=== PATIENT | male | born 1975 | race Caucasian/White ===

== ENCOUNTER 2024-07-15 17:26 | Emergency (ER) | payer OTHER ==
--- NOTE | 2024-07-15 18:47 | RAD REPORT ---
EXAMINATION: ONE VIEW CHEST XR CLINICAL INDICATION: Chest pain;Palpitations TECHNIQUE: Frontal chest projection is submitted. Examination is limited by patient positioning and t echnique. COMPARISON: No prior exam. FINDINGS: The lungs are well inflated and clear. The heart is normal in size. No displaced fractures identified . IMPRESSION: No acute intrathoracic abnormalities.
[2024-07-15 21:42] LABS: Absolute Eosinophils 0.1 K/uL (0-0.5); Absolute Lymphocytes (CBC) 1.8 K/uL (0.7-4.9); Absolute Monocytes 0.4 K/uL (0.1-1.3); Absolute Neutrophil 5.2 K/uL (1.8-8.0); Basophils % 0.5 % (0-1.3); Eosinophils % 1.6 % (0-4.4); Hematocrit 44.7 % (39.6-49.0); MCH 30.4 pg (27.0-35.0); MCHC 33.6 g/dL (32.0-36.0); MCV 90.4 fL (80-100); MPV 7.9 fL (7.6-11.3); Monocytes % 5.2 % (3.3-12.3); Neutrophils % 68.7 % (41.7-73.7); Platelets 269 thou/uL (152-406); RBC Red Blood Cell Count 4.94 M/uL (4.33-5.43); Red Cell Distribution Width 13.4 % (12.1-15.2)
[2024-07-15 21:52] LABS: PT Prothrombin Time 10.8 SECONDS (9.4-12.5); Protime INR 1.03
[2024-07-15 22:02] LABS: ALT/SGPT 60 U/L (16-61); AST/SGOT 32 U/L (15-37); Albumin 3.6 g/dL (3.4-5.0); Albumin/Globulin Ratio 0.9 (1.1-1.8); Alkaline Phosphatase 108 U/L (45-117); Anion Gap 6.7 mEq/L (5.0-15.0); BUN Blood Urea Nitrogen 15 mg/dL (7-18); Bicarbonate 30 mEq/L (21-32); Bilirubin Direct < 0.2 mg/dL (0-0.2); Bilirubin Indirect, Calculated 0.1 mg/dL (0.2-0.8); Bilirubin Total 0.3 mg/dL (0.2-1.0); Globulin 3.9 g/dL (2.3-3.5); Glomerular Filtration Rate 109 ml/min (=/>90); Glucose Level 97 mg/dL (74-106); Magnesium 2.3 mg/dL (1.6-2.4); NT PRO-BNP 22 pg/mL (<125); Potassium 3.7 mEq/L (3.5-5.1); Protein, Total 7.5 g/dL (6.4-8.2); Sodium Level 138 mEq/L (136-145); Troponin High Sensitivity 5.5 pg/mL (<58.9)
--- NOTE | 2024-07-15 22:14 | ER ---
Nurse's Notes [facility] Name: Anmol Miranda III Age: 49 yrs Sex: Male : 1975 Arrival Date: 07/15/2024 Time: 17:26 Bed 13 Private MD: Diagnosis: Palpitations;Chest pain, unspecified Presentation: 07/15 17:52 Chief complaint: Patient states: episodes of irregular heart beat x days. Coronavirus ss screen: Client denies travel out of the [place] in the last 14 days. Ebola Screen: Patient denies exposure to infectious person. Patient denies travel to an Ebola-affected area in the 21 days before illness onset. Initial Sepsis Screen: Does the patient meet any 2 criteria? No. Patient's initial sepsis screen is negative. Does the patient have a suspected source of infection? No. Patient's initial sepsis screen is negative. Risk Assessment: Do you want to hurt yourself or someone else? Patient reports no desire to harm self or others. Onset of symptoms Onset of symptoms was July 2024. 17:52 Method Of Arrival: Ambulatory ss 17:52 Acuity: KEVIN 3 ss Triage Assessment: 18:09 General: Appears in no apparent distress. comfortable, Behavior is calm, cooperative. ph Pain: Denies pain. Cardiovascular: Reports palpitations. Historical: - Allergies: 17:59 No Known Allergies; ss - PMHx: 17:59 back pain; ss - PSHx: 17:59 joint fusion-back; ACL- L; ss - Immunization history:: Adult Immunizations unknown. - Infectious Disease History:: Denies. - Social history:: Smoking status: Patient denies any tobacco usage or history of. Screenin:00 [facility] ED Fall Risk Assessment (Adult) History of falling in the last 3 months, rg5 including since admission No falls in past 3 months (0 pts) Confusion or Disorientation No (0 pts) Intoxicated or Sedated No (0 pts) Impaired Gait No (0 pts) Mobility Assist Device Used No (0 pt) Altered Elimination No (0 pt) Score/Fall Risk Level 0 - 2 = Low Risk Oriented to surroundings, Maintained a safe environment, Hourly rounding (assess needs \T\ fall precautionary measures) done. Abuse screen: Denies threats or abuse. Nutritional screening: No deficits noted. Tuberculosis screening: No symptoms or risk factors identified. Assessment: 21:00 General: Appears in no apparent distress. comfortable, Behavior is calm, cooperative. rg5 21:00 Pain: Complains of pain in chest Pain does not radiate. Pain currently is 2 out of 10 rg5 on a pain scale. Quality of pain is described as aching, dull, Pain began 1 day ago. Is intermittent. Neuro: Level of Consciousness is awake, alert, Oriented to person, place, time, situation. Cardiovascular: Reports chest pain. Respiratory: Airway is patent Trachea midline Respiratory effort is even, unlabored, Respiratory pattern is regular, symmetrical, Breath sounds are clear bilaterally. GI: No signs and/or symptoms were reported involving the gastrointestinal system. : No signs and/or symptoms were reported regarding the genitourinary system. EENT: No deficits noted. Derm: Skin is intact, Skin is dry, Skin is normal, Skin temperature is warm. 22:00 Reassessment: Patient and/or family updated on plan of care and expected duration. Pain rg5 level reassessed. Patient is alert, oriented x 3, equal unlabored respirations, skin warm/dry/pink. Patient states feeling better. Vital Signs: 17:52 BP 152 / 98; Pulse 70; Resp 16; Temp 97.6(TE); Pulse Ox 100% on R/A; Weight 81.65 kg; ss Height 6 ft. 0 in. ; 21:00 BP 140 / 90; Pulse 70; Resp 17; Temp 98; Pulse Ox 100% on R/A; Pain 2/10; rg5 22:00 BP 122 / 78; Pulse 59; Resp 17; Pulse Ox 99% on R/A; rg5 17:52 Body Mass Index 24.41 (81.65 kg, 182.88 cm) ss 21:00 Pain Scale: Adult rg5 ED Course: 17:29 Patient arrived in ED. ra3 17:33 Eliseo Rosales PA is PHCP. cp 17:33 Matty Sandoval MD is Attending Physician. cp 17:52 Arm band placed on right wrist. ss 17:54 Triage completed. ss 18:09 EKG completed in triage. Results shown to MD. ph 18:17 XRAY Chest (1 view) In Process Unspecified. EDMS 20:30 Ivan Rodriguez, PHUONG is Primary Nurse. rg5 21:00 Patient has correct armband on for positive identification. Bed in low position. Call rg5 light in reach. Side rails up X 1. Client placed on continuous cardiac and pulse oximetry monitoring. NIBP monitoring applied. vehicle monitor technician on. Pulse ox on. Door closed. Noise minimized. Warm blanket given. Verbal reassurance given. 21:00 No provider procedures requiring assistance completed. Inserted saline lock: 20 gauge rg5 in right antecubital area, using aseptic technique. Blood collected. Flushed with 10 mL NS. Patient maintains SpO2 saturation greater than 95% on room air. 22:13 Adrián London MD is Referral Physician. cp 22:43 Provided Education on: post er care. rg5 22:43 IV discontinued, bleeding controlled, No redness/swelling at site. Pressure dressing rg5 applied. Administered Medications: No medications were administered Medication: 21:00 VIS not applicable for this client. rg5 Outcome: 22:14 Discharge ordered by . cp 22:54 Patient left the ED. oh1 Signatures: Dispatcher [employer] EDMS Naty Burris, RN RN Audrey Jackson RN RN ph Connie, Eliseo, PA PA Kylie Lira ra3 Ivan Rodriguez RN RN rg5 Batsheva Flores oh1
--- NOTE | 2024-07-15 22:14 | EDPHYS ---
Physician Documentation [facility] Name: Anmol Miranda III Age: 49 yrs Sex: Male : 1975 Arrival Date: 07/15/2024 Time: 17:26 Bed 13 Private MD: ED Physician Matty Sandoval HPI: 07/15 18:00 This 49 yrs old Male presents to ER via Ambulatory with complaints of Chest Pain - cp x4days. 18:00 The patient presents with a history of irregular heart beat. cp 18:00 Context: The symptoms occur without known cause. Onset: The symptoms/episode cp began/occurred 4 day(s) ago, intermittent. Duration: The patient or guardian reports multiple episodes. Associated signs and symptoms: Pertinent positives: chest pain, Pertinent negatives: cough, fever, lightheadedness, syncope, near-syncope, vomiting. Severity of symptoms: in the emergency department the symptoms have improved. Historical: - Allergies: 17:59 No Known Allergies; ss - PMHx: 17:59 back pain; ss - PSHx: 17:59 joint fusion-back; ACL- L; ss - Immunization history:: Adult Immunizations unknown. - Infectious Disease History:: Denies. - Social history:: Smoking status: Patient denies any tobacco usage or history of. ROS: 18:05 Cardiovascular: Positive for chest pain, palpitations, Negative for edema, cp 18:05 Respiratory: Negative for cough, shortness of breath, wheezing, cp 18:05 Constitutional: Negative for body aches, chills, fever, poor PO intake, cp 18:05 Eyes: Negative for injury, pain, redness, and discharge, cp 18:05 ENT: Negative for drainage from ear(s), ear pain, sore throat, difficulty swallowing, difficulty handling secretions, 18:05 Abdomen/GI: Negative for abdominal pain, vomiting, diarrhea, constipation, 18:05 : Negative for urinary symptoms, 18:05 Neuro: Negative for altered mental status, dizziness, headache, syncope, near syncope, weakness, 18:05 All other systems are negative, Exam: 18:10 Constitutional: The patient appears in no acute distress, alert, awake, cp non-diaphoretic, non-toxic, well developed, well nourished, 18:10 Head/Face: Normocephalic, atraumatic. cp 18:10 Eyes: Periorbital structures: appear normal, Conjunctiva: normal, no exudate, no injection, Sclera: no appreciated abnormality, Lids and lashes: appear normal, bilaterally, 18:10 ENT: External ear(s): are unremarkable, Nose: is normal, Mouth: Lips: moist, Oral mucosa: moist, Posterior pharynx: Airway: no evidence of obstruction, patent, 18:10 Neck: ROM/movement: is normal, is supple, without pain, no range of motions cp limitations, 18:10 Chest/axilla: Inspection: normal, Palpation: crepitus, is not appreciated, tenderness, cp that is mild, of the anterior aspect of right upper chest, anterior aspect of left upper chest and mid-sternal area, 18:10 Cardiovascular: Rate: normal, Rhythm: regular, Edema: is not appreciated, JVD: is not appreciated, 18:10 Respiratory: the patient does not display signs of respiratory distress, Respirations: normal, no use of accessory muscles, no retractions, labored breathing, is not present, Breath sounds: are clear throughout, no decreased breath sounds, no stridor, no wheezing, 18:10 Abdomen/GI: Inspection: abdomen appears normal, Palpation: abdomen is soft and non-tender, in all quadrants, 18:10 Neuro: Orientation: to person, place \T\ time. Mentation: is normal, Motor: moves all fours, strength is normal, Sensation: is normal, 18:12 ECG was reviewed by the Attending Physician. cp Vital Signs: 17:52 BP 152 / 98; Pulse 70; Resp 16; Temp 97.6(TE); Pulse Ox 100% on R/A; Weight 81.65 kg; ss Height 6 ft. 0 in. ; 21:00 BP 140 / 90; Pulse 70; Resp 17; Temp 98; Pulse Ox 100% on R/A; Pain 2/10; rg5 22:00 BP 122 / 78; Pulse 59; Resp 17; Pulse Ox 99% on R/A; rg5 17:52 Body Mass Index 24.41 (81.65 kg, 182.88 cm) ss 21:00 Pain Scale: Adult rg5 MDM: 17:51 Medical Screening Exam initiated cp 18:00 Differential diagnosis: arrythmia, dehydration, stress disorder, anxiety, acute NV, cp pulmonary embolism. 22:13 Data reviewed: vital signs, nurses notes, lab test result(s), EKG, radiologic studies, cp plain films, and as a result, I will discharge patient. 22:13 I considered the following discharge prescriptions or medication management in the emergency department Medications were administered in the Emergency Department. See MAR. Independent interpretation of the following test(s) in the Emergency Department EKG: See my EKG interpretation above. Counseling: I had a detailed discussion with the patient and/or guardian regarding the historical points, exam findings, and any diagnostic results supporting the discharge/admit diagnosis, lab results, radiology results, the need for outpatient follow up, a baker head, to return to the emergency department if symptoms worsen or persist or if there are any questions or concerns that arise at home. Special discussion: Based on the patient's history, exam, and Dx evaluation, there is no indication for emergent intervention or inpatient Tx. It is understood by the patient/guardian that if the Sx's persist or worsen they need to return immediately for re-evaluation. 07/15 17:59 Order name: Basic Metabolic Panel; Complete Time: 22:07 07/15 22:07 Interpretation: Reviewed. 07/15 17:59 Order name: CBC with Diff; Complete Time: 22:07 07/15 17:59 Order name: LFT's; Complete Time: 22:07 07/15 22:07 Interpretation: Normal except: IBILI, CALC 0.1; GLOB 3.9; A/G 0.9. 07/15 17:59 Order name: Magnesium; Complete Time: 22:07 07/15 17:59 Order name: NT PRO-BNP; Complete Time: 22:07 07/15 17:59 Order name: PT-INR; Complete Time: 22:07 07/15 17:59 Order name: Troponin HS; Complete Time: 22:07 07/15 22:07 Interpretation: Reviewed. 07/15 17:59 Order name: XRAY Chest (1 view); Complete Time: 21:07 07/15 21:07 Interpretation: Report review. 07/15 17:59 Order name: Cardiac monitoring; Complete Time: 21:33 07/15 17:59 Order name: EKG - Nurse/Tech; Complete Time: 18:09 07/15 17:59 Order name: IV Saline Lock; Complete Time: 21:33 cp 07/15 17:59 Order name: Labs collected and sent; Complete Time: 21:33 cp 07/15 17:59 Order name: O2 Per Protocol; Complete Time: 21:33 cp 07/15 17:59 Order name: O2 Sat Monitoring; Complete Time: 21:33 cp EC:12 Rate is 62 beats/min. Rhythm is regular. VA interval is normal. QRS interval is normal. cp QT interval is normal. T waves are Inverted in lead aVR. Interpreted by me. Reviewed by me. Administered Medications: No medications were administered Disposition: 07/16 09:43 Co-signature as Attending Physician, Matty Sandoval MD I reviewed the patient's care rn provided by the Advanced Practice Provider and agree with the diagnosis and treatment plan. Disposition Summary: 07/15/24 22:14 Discharge Ordered Notes: Location: Home cp Problem: new cp Symptoms: have improved cp Condition: Stable cp Diagnosis - Palpitations cp - Chest pain, unspecified cp Followup: cp - With: Adrián London MD - When: 2 - 3 days - Reason: Recheck today's complaints Discharge Instructions: - Discharge Summary Sheet cp - Nonspecific Chest Pain, Adult cp - Palpitations cp - Aspirin and Your Heart cp - Ambulatory Cardiac Monitoring cp Forms: - Medication Reconciliation Form cp - Antibiotic Education cp - Prescription Opioid Use cp - Patient Portal Instructions cp - Leadership Thank You Letter cp Signatures: Dispatcher [employer] EDMatty Plasencia MD MD rn Blanchard, Shelby, RN RN ss Page, Corey, PA PA cp Corrections: (The following items were deleted from the chart) 07/15 18:00 18:00 BASIC METABOLIC PANEL+C.LAB.BRZ ordered. EDMS EDMS 18:00 18:00 CBC+H.LAB.BRZ ordered. EDMS EDMS 18:00 18:00 HEPATIC FUNCTION+C.LAB.BRZ ordered. EDMS EDMS 18:00 18:00 MAGNESIUM+C.LAB.BRZ ordered. EDMS EDMS 18:00 18:00 PROBNP+C.LAB.BRZ ordered. EDAZ EDMS 18:00 18:00 PROTIME (+INR)+COAG.LAB.BRZ ordered. EDMS EDMS 18:00 18:00 Troponin High Sensitivity+C.LAB.BRZ ordered. EDMS EDMS 18:00 18:00 Chest Single View+RAD.RAD.BRZ ordered. EDMS EDMS
[2024-07-15 23:19] VITALS: TEMP 98
[2024-07-15 23:21] VITALS: BP 122/78; O2SAT 99
--- NOTE | 2024-07-17 12:46 | EKG ---
Test Date: 2024-07-15 Test Time: 18:06:23 Child Care Attendant: PH MEASUREMENT RESULTS: Intervals: Rate: 62 [place]: 150 QRSD: 78 QT: 380 QTc: 385 [place]: P: 52 [place]: 150 QRS: 31 T: 42 INTERPRETIVE STATEMENTS: Normal sinus rhythm Normal ECG No previous ECG available for comparison Electronically Signed On 07-17-24 12:42:35 HOT STRIP FINISHER by Jean Carlos Prabhakar
== END 2024-07-15 22:54 | disposition home or self-care (01) ==
LOC: ER 17:26
DX: R07.9 Chest pain, unspecified (principal); R00.2 Palpitations
CPT/HCPCS: 36415; 71045; 80048; 80076; 83735; 83880; 84484; 85025; 85610; 93005; 99284